=== PATIENT | male | born 1995 | race Hispanic/Latino ===

== ENCOUNTER 2017-10-31 10:14 | Emergency (ER) | payer MEDICAID ==
[2017-10-31 10:26] VITALS: BMI 20.3
[2017-10-31 10:29] VITALS: BP 104/64; PULSE 74; TEMP 98; O2SAT 98
[2017-10-31 10:44] VITALS: RESP 16
--- NOTE | 2017-10-31 10:59 | ED PDOC ---
HPI: SOB/CHF/COPD Time Seen by Provider: 10/31/17 10:50 Chief Complaint (Nursing): Shortness Of Breath History Per: Patient Onset/Duration Of Symptoms: Days (3) Current Symptoms Are (Timing): Still Present Current Respiratory Medications: See Home Med List Severity: Mild Additional Complaint(s): Itchy eyes, runny nose and SOB and wheezing x 3 days. Ran out of asthma meds. No fever. Nonproductive cough Past Medical History Vital Signs: Last Vital Signs Temp 98 F 10/31/17 10:27 Pulse 74 10/31/17 10:27 Resp 16 10/31/17 10:42 BP 104/64 10/31/17 10:27 Pulse Ox 98 10/31/17 10:27 - Medical History PMH: Asthma - Family History Family History: States: Unknown Family Hx - Immunization History Hx Tetanus Toxoid Vaccination: Yes Hx Influenza Vaccination: No Hx Pneumococcal Vaccination: No - Home Medications Home Medications: Ambulatory Orders Medication Instructions Recorded Ibuprofen [Motrin] 600 mg PO Q6 PRN #25 tab 04/03/13 Ondansetron [Zofran Odt] 4 mg PO Q6H PRN #30 odt 04/03/13 Ibuprofen [Motrin] 600 mg PO Q8 #30 tab 10/23/14 Albuterol HFA [Ventolin HFA 90 2 puff IH Q4H #1 puff 07/17/15 mcg/actuation (8 g)] Amoxicillin [Amoxil] 500 mg PO TID #30 cap 07/17/15 Codeine Phos/Phenyleph HCl/P 5 ml PO Q6H #100 syr 07/17/15 [Phenergan Vc W/Codeine 120 ml] Albuterol 0.083% [Albuterol 3 ml IH Q8 #1 neb 10/31/17 Sulfate 3 Ml] Albuterol HFA [Ventolin HFA 90 2 puff IH Q4H #1 puff 10/31/17 mcg/actuation (8 g)] Methylprednisolone [Medrol Dose 4 mg PO DAILY #21 tab 10/31/17 Pack (21 tabs)] - Allergies Allergies/Adverse Reactions: Allergies Allergy/AdvReac Type Severity Reaction Status Date / Time shrimp Allergy ANAPHYLAXIS Verified 10/31/17 10:35 Review of Systems ROS Statement: Except As Marked, All Systems Reviewed And Found Negative Constitutional: Negative for: Fever ENT: Positive for: Nose Congestion Respiratory: Positive for: Cough, Shortness of Breath Physical Exam - Physical Exam Appears: Positive for: Non-toxic, No Acute Distress Skin: Positive for: Normal Color, Warm, DRY Cardiovascular/Chest: Positive for: Regular Rate, Rhythm Respiratory: Positive for: Rhonchi. Negative for: Wheezing, Respiratory Distress Neurologic/Psych: Positive for: Alert, Oriented - ECG O2 Sat by Pulse Oximetry: 98 Disposition - Clinical Impression Clinical Impression: Asthma due to seasonal allergies - Patient ED Disposition Is Patient to be Admitted: No Counseled Patient/Family Regarding: Diagnosis, Need For Followup, Rx Given - Disposition Referrals: [facility] [Outside] Disposition: Routine/Home Disposition Time: 11:00 Condition: FAIR Prescriptions: Albuterol 0.083% [Albuterol Sulfate 3 Ml] 3 ml IH Q8 #1 neb Albuterol HFA [Ventolin HFA 90 mcg/actuation (8 g)] 2 puff IH Q4H #1 puff Methylprednisolone [Medrol Dose Pack (21 tabs)] 4 mg PO DAILY #21 tab Instructions: Asthma, Adult (DC), Seasonal Allergies in Adults
[2017-10-31] MEDS ORDERED: Albuterol-Ipratrop 3 mg / 0.5 (3 ml) UD IH STA (11:08)
[2017-10-31] MEDS ORDERED: Albuterol-Ipratrop 3 mg / 0.5 (3 ml) UD ONE (11:11)
== END 2017-10-31 12:23 | disposition home or self-care (01) ==
LOC: H.ER 10:14
DX: J45.909 Unspecified asthma, uncomplicated (principal)